=== PATIENT | female | born 1960 | race Caucasian/White ===

== ENCOUNTER 2021-05-02 15:26 | Emergency (ER) | payer BC ==
[~2021-05-02] VITALS: Ht 157.5 cm; Wt 89.8 kg
[2021-05-02 15:50] LABS: ABSOLUTE NEUTROPHILS 4.5 thou/uL (1.4-8.2); BASOPHILS 0.3 % (0.0-2.0); HEMATOCRIT 42.5 % (37.0-47.0); HEMOGLOBIN 14.7 gm/dL (12.0-15.0); LYMPHOCYTES 7.6 % (24.0-44.0); MCH 30.6 pg (26.0-34.0); MCHC 34.6 g/dL (28.0-37.0); MCV 88.4 fL (80.0-100.0); MONOCYTES 7.8 % (1.0-8.0); PLATELET COUNT 247 thou/uL (150-400); POLYS 84.3 % (36.0-66.0); RBC 4.81 mil/uL (4.20-5.00); RDW 13.1 % (10.5-14.5); WBC 5.4 thou/uL (4.0-11.0)
[2021-05-02 16:12] LABS: CALCIUM 9.3 mg/dL (8.5-10.1); CREATININE 0.9 mg/dL (0.6-1.0); POTASSIUM 3.8 mmol/L (3.5-5.1)
[2021-05-02 16:15] LABS: ALBUMIN 4.1 g/dL (3.4-5.0); TOTAL BILIRUBIN 0.3 mg/dL (0.2-1.0); TOTAL PROTEIN 7.9 g/dL (6.4-8.2)
[2021-05-02] MEDS ORDERED: ZESTRIL20 MG PO (16:58)
[2021-05-02] MEDS ORDERED: LISINOPRIL-HCT1 EAC2 PO (16:59)
[2021-05-02] MEDS ORDERED: ULTRAM50 MG PO (17:00)
[2021-05-02] MEDS ORDERED: CELEBREX50 MG PO (17:00)
[2021-05-02] MEDS ORDERED: ROSUVASTATIN CA20 MG PO (17:01)
[2021-05-02] MEDS ORDERED: MEDROLDOSEPACK PO (19:23)
[2021-05-02] MEDS ORDERED: PROAIR HFA8.5 GM INH (19:24)
[2021-05-02] MEDS ORDERED: ONDANSETRON HCL4 M2 PO (19:24)
[2021-05-02] MEDS ORDERED: TESSALON PERLE100 MG PO (19:24)
[2021-05-02] MEDS ORDERED: DOXYCYCLINE 10100 MG PO (19:24)
[2021-05-02 19:30] VITALS: BP 120/65
--- NOTE | 2021-05-03 07:17 | EKG ---
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
== END 2021-05-02 19:30 | disposition home or self-care (01) ==
LOC: ER 15:26
PROVIDERS: Nurse Practitioner
DX: U07.1 COVID-19 (principal); R11.2 Nausea with vomiting, unspecified; Z79.899 Other long term (current) drug therapy; Z88.1 Allergy status to other antibiotic agents